=== PATIENT | female | born 1990 | race Caucasian/White ===

== ENCOUNTER 2017-11-21 04:37 | Inpatient (IN) | payer OTHER ==
[2017-11-21 05:13] LABS: URINE HCG POC HCG NEGATIVE (Negative)
[2017-11-21] MEDS: IV NORMAL SALINE 1000ML BAG 1,000 ML IV (07:59)
[2017-11-21 08:09] LABS: ADD MAN DIFF? NO
[2017-11-21 08:17] LABS: BASO % 0 % (0-3); EOS % 0 % (0-3); HEMATOCRIT 41.1 % (36.0-47.0); LYMPH # 2.3 x10^3/uL (1.0-4.8); LYMPH % 35 % (24-48); MEAN CORPUSCULAR HEMOGLOBIN 31 pg (25-35); MEAN CORPUSCULAR HGB CONC 34 g/dL (31-37); MEAN CORPUSCULAR VOLUME 91 fL (79-100); MONO # 0.2 x10^3/uL (0.0-1.1); MONO % 3 % (0-9); NEUT % 62 % (31-73); PLATELET COUNT 214 x10^3/uL (140-400); RED BLOOD COUNT 4.53 x10^6/uL (3.50-5.40); RED CELL DISTRIBUTION WIDTH 12.2 % (11.5-14.5); WHITE BLOOD COUNT 6.5 x10^3/uL (4.0-11.0)
[2017-11-21 08:35] LABS: ANION GAP 11 (6-14); BLOOD UREA NITROGEN 12 mg/dL (7-20); BUN/CREATININE RATIO 17 (6-20); CALCIUM 8.4 mg/dL (8.5-10.1); CARBON DIOXIDE 25 mmol/L (21-32); CHLORIDE 105 mmol/L (98-107); CREATININE 0.7 mg/dL (0.6-1.0); GLUCOSE 99 mg/dL (70-99); POTASSIUM 4.1 mmol/L (3.5-5.1); SODIUM 141 mmol/L (136-145)
[2017-11-21 08:39] LABS: ETHANOL 215 mg/dL (0-10)
[2017-11-21 08:43] LABS: ALBUMIN 4.2 g/dL (3.4-5.0); ALBUMIN/GLOBULIN RATIO 1.3 (1.0-1.7); ALK PHOS 73 U/L (46-116); ALT (SGPT) 31 U/L (14-59); AST (SGOT) 28 U/L (15-37); TOTAL BILIRUBIN 0.2 mg/dL (0.2-1.0); TOTAL PROTEIN 7.4 g/dL (6.4-8.2)
[2017-11-21] MEDS ORDERED: oxyCODONE IR 5 MG TABLET PO (14:45)
[2017-11-21] MEDS: POTASSIUM CL 20MEQ-0.45% NACL 1,000 ML IV ×2 (15:09→22:45)
[2017-11-21] MEDS: ONDANSETRON PF 4 MG/2 ML VIAL. IV (15:09)
[2017-11-21] MEDS: ACETAMINOPHEN 325 MG TABLET. PO (16:39)
[2017-11-22 06:13] LABS: ADD MAN DIFF? NO
[2017-11-22 06:29] LABS: ANION GAP 8 (6-14); BLOOD UREA NITROGEN 14 mg/dL (7-20); CALCIUM 8.2 mg/dL (8.5-10.1); CARBON DIOXIDE 26 mmol/L (21-32); CHLORIDE 105 mmol/L (98-107); CREATININE 0.7 mg/dL (0.6-1.0); GLUCOSE 104 mg/dL (70-99); POTASSIUM 3.7 mmol/L (3.5-5.1); SODIUM 139 mmol/L (136-145)
[2017-11-22 06:30] LABS: BASO % 1 % (0-3); EOS # 0.1 x10^3/uL (0.0-0.7); EOS % 1 % (0-3); HEMATOCRIT 38.1 % (36.0-47.0); HEMOGLOBIN 12.8 g/dL (12.0-15.5); LYMPH # 3.1 x10^3/uL (1.0-4.8); LYMPH % 51 % (24-48); MEAN CORPUSCULAR HEMOGLOBIN 31 pg (25-35); MEAN CORPUSCULAR HGB CONC 34 g/dL (31-37); MEAN CORPUSCULAR VOLUME 91 fL (79-100); MONO # 0.5 x10^3/uL (0.0-1.1); MONO % 9 % (0-9); NEUT # 2.4 x10^3uL (1.8-7.7); NEUT % 39 % (31-73); PLATELET COUNT 186 x10^3/uL (140-400); RED BLOOD COUNT 4.17 x10^6/uL (3.50-5.40); RED CELL DISTRIBUTION WIDTH 12.3 % (11.5-14.5); WHITE BLOOD COUNT 6.1 x10^3/uL (4.0-11.0)
[2017-11-22] MEDS: POTASSIUM CL 20MEQ-0.45% NACL 1,000 ML IV (07:00)
[2017-11-22] MEDS: ACETAMINOPHEN 325 MG TABLET. PO (07:00)
== END 2017-11-22 10:15 | disposition home or self-care (01) | DRG 89 ==
LOC: ER 04:37 → 4 NORTH 10:30
PROVIDERS: Internal Medicine Hematology & Oncology
DX: S06.0X9A Concussion with loss of consciousness of unspecified duration, initial encounter (principal); S13.120A Subluxation of C1/C2 cervical vertebrae, initial encounter; F10.129 Alcohol abuse with intoxication, unspecified; W18.00XA Striking against unspecified object with subsequent fall, initial encounter; Z82.49 Family history of ischemic heart disease and other diseases of the circulatory system; Z83.3 Family history of diabetes mellitus; Y93.89 Activity, other specified; Y92.89 Other specified places as the place of occurrence of the external cause; Y99.8 Other external cause status
CPT/HCPCS: 36415; 70450; 72125; 72141; 80048; 80053; 81025; 85025; G0480; J2405; J7030